=== PATIENT | female | born 1950 | race Caucasian/White ===

== ENCOUNTER → 2023-01-18 15:41 | Outpatient (CLI) | payer MEDICARE, SELFPAY ==
--- NOTE | 2023-01-18 15:43 | DI.RAD.S_ITS ---
PROCEDURE: XR ELBOW RT MIN 3V INDICATIONS: biceps tendon rupture, shoulder pain TECHNIQUE: 3 views of the elbow were acquired. COMPARISON: None. FINDINGS: Bones: No fractures or dislocations. No suspicious bony lesions. Soft tissues: No elbow joint effusion. No suspicious soft tissue calcifications. IMPRESSION: No acute elbow fracture or dislocation. No significant joint effusion. Dictated by: Ricardo Medel M.D. on 01/18/2023 at 16:24 Approved by: Ricardo Medel M.D. on 01/18/2023 at 16:25
--- NOTE | 2023-01-18 15:43 | DI.RAD.S_ITS ---
PROCEDURE: XR SHOULDER RT MIN 2V INDICATIONS: biceps tendon rupture, shoulder pain TECHNIQUE: 3 views of the shoulder were acquired. COMPARISON: None. FINDINGS: Bones: No fractures or dislocations. Moderate acromioclavicular joint and glenohumeral joint osteoarthritic changes are seen. No suspicious bony lesions. Visualized ribs appear intact. Soft tissues: No suspicious soft tissue calcifications. IMPRESSION: Moderate right shoulder joint osteoarthritis. No acute fracture or dislocation. No gross soft tissue abnormalities. Dictated by: Ricardo Medel M.D. on 01/18/2023 at 16:25 Approved by: Ricardo Medel M.D. on 01/18/2023 at 16:25
== END ==
PROVIDERS: Referring Provider Student in an Organized Health Care Education/Training Program; Visit Provider Student in an Organized Health Care Education/Training Program
DX: M19.011 Primary osteoarthritis, right shoulder; S46.219A Strain of muscle, fascia and tendon of other parts of biceps, unspecified arm, initial encounter
CPT/HCPCS: 73030; 73080

== ENCOUNTER 2025-01-09 20:13 | Emergency (ER) | payer MEDICARE, SELFPAY ==
[2025-01-09 20:20] VITALS: BP 185/84; PULSE 80; RESP 20; TEMP 36.7; O2SAT 97; BMI 24.5
[2025-01-09] MEDS: ONDANSETRON 4 MG/2 ML INJ IV (20:34)
[2025-01-09 20:49] LABS: Add Manual Diff / Slide Review NO; Hematocrit 39.2 % (36-46); Hemoglobin 13.2 g/dL (12.0-16.0); Lymphocytes Absolute Auto 2600 /uL (1100-4500); Mean Corpuscular HGB Conc 33.7 % (30-36); Mean Corpuscular Hemoglobin 31.2 PG (26-34); Mean Corpuscular Volume 92.6 fL (80-100); Platelet Count 251 X10^3/uL (150-400)
[2025-01-09 20:55] LABS: Alanine Aminotransferase 36 IU/L (<35); Albumin 4.8 g/dL (3.5-5.0); Albumin Globulin Ratio 1.7 (1.0-2.8); Alkaline Phosphatase 56 U/L (38-126); Blood Urea Nitrogen 18 mg/dL (7-17); Calcium 10.0 mg/dL (8.4-10.2); Carbon Dioxide 21 mmol/L (22-32); Chloride 110 mmol/L (98-107); Estimated Glomerular Filt Rate > 60 mL/min (>60); Globulin 2.8 g/dL (1.7-4.1); Glucose 123 mg/dL (70-99); HEMOLYSIS < 15 (0-50); Lipase 113 U/L (23-300); Potassium 4.0 mmol/L (3.4-5.1); Sodium 140 mmol/L (137-145); Total Protein 7.6 g/dL (6.3-8.2)
--- NOTE | 2025-01-09 21:05 | DI.CT.S_ITS ---
PROCEDURE: CT ABDOMEN PELVIS W CON INDICATIONS: LLQ abd pain TECHNIQUE: After the administration of intravenous contrast, axial sections acquired from the lung bases to the pubic symphysis. Coronal and sagittal reformats were performed. For radiation dose reduction, the following was used: automated exposure control, adjustment of mA and/or kV according to patient size. COMPARISON: None. FINDINGS: Image quality: Streak artifact from posterior spinal fusion hardware limits evaluation of surrounding structures. Lower Chest: No significant findings. ABDOMEN: Liver: No solid mass. Subcentimeter hypodensities are too small to characterize by CT. Gallbladder: No radiopaque gallstones or wall thickening. Contracted. Biliary ducts: No biliary dilation. Pancreas: No ductal dilation. Spleen: Size is within normal limits. Adrenal Glands: No adrenal nodules. Kidneys and Ureters: No hydronephrosis. No solid mass. No complex renal cystic lesion which requires follow up. Stomach and Bowel: Normal colonic caliber, without significant wall thickening. Normal caliber appendix. Peritoneum: No abnormal intraperitoneal fluid. No free air. Ventral Wall: No significant ventral hernia. Abdominal Nodes: No retroperitoneal or mesenteric adenopathy by size criteria. Vessels: Aorta and inferior vena cava are normal in size. PELVIS: Pelvic Organs: Unremarkable. Bladder: No bladder wall thickening, accounting for underdistention. Pelvic Nodes: No enlarged lymph nodes. Miscellaneous: No inguinal hernias are seen. Bones: No aggressive osseous abnormality. Thoracolumbar posterior spinal fusion. IMPRESSION: No acute abdominopelvic process. Approved by: Narsin Stern M.D.,Ph.D. on 01/09/2025 at 22:56
--- NOTE | 2025-01-09 21:53 | ED_ITS ---
HPI - General Adult General Chief complaint: Abdominal Pain Stated complaint: Abdominal Pain, Nausea Time Seen by Provider: 01/09/25 20:24 Source: patient Mode of arrival: Ambulatory History of Present Illness HPI narrative: 74-year-old female with history of remote back surgery 26 years ago, complains of flank area discomfort since 04/09 this morning. No recent change in activities, trauma, falls, lifting. She denies pain with urination, no frequency of urination. No cough, shortness of breath, fevers or chills. No history of kidney stones. No prior colitis or diverticulitis problems. Normal bowel movement, no history of constipation. No nausea or vomiting or diarrhea. No skin rashes. Related Data Previous Rx's ?Medication ?Instructions ?Recorded methocarbamol 500 mg tablet 500 mg PO TID 7 days #21 t abs 01/09/25 Allergies Allergy/AdvReac Type Severity Reaction Status Date / Time No Known Drug Allergies Allergy Verified 01/09/25 20:20 Patient History Social History Smoking Status: Former smoker Smoking Status: Former smoker Exam Narrative Exam Narrative: GENERAL: Well-developed patient, in mild distress. HEAD: Atraumatic. Normocephalic. EYES: Pupils equal round and reactive. Extraocular motions intact. No scleral icterus. No injection or drainage. ENT: Nose without bleeding, purulent drainage. Throat without erythema, tonsillar hypertrophy or exudate. Airway patent. NECK: Trachea midline. Non tender CARDIOVASCULAR: Regular rate and rhythm without murmurs, gallops, or rubs. RESPIRATORY: Clear to auscultation. Breath sounds equal bilaterally. No wheezes, rales, or rhonchi. GASTROINTESTINAL: Abdomen soft, non-tender, nondistended. EXTREMITIES: No edema or joint tenderness. BACK: Nontender without deformity or crepitance. No flank tenderness. Well- healed lumbar old scar. No tenderness paraspinal lumbar or thoracic, no CVA region tenderness on percussion. NEURO: AOx3. Motor functions grossly nonfocal. SKIN: No rash or erythema of visible areas Initial Vital Signs Initial Vital Signs: Vital Signs Temperature 98.1 F 01/09/25 20:20 Pulse Rate 80 01/09/25 20:20 Respiratory Rate 20 01/09/25 20:20 Blood Pressure 185/84 H 01/09/25 20:20 Pulse Oximetry 97 01/09/25 20:20 Oxygen Delivery Method Room Air 01/09/25 20:20 Course Orders Ordered: ED Orders 01/09/25 20:25 EKG-12 Lead Stat 01/09/25 20:30 Urine Culture Stat Urine Microscopic Stat 01/09/25 20:31 Complete Blood Count AUTO DIFF Stat Comprehensive Metabolic Panel Stat Lipase Stat 01/09/25 21:05 CT abdomen pelvis w con Stat Discontinued Medications Methocarbamol (Methocarbamol 500 Mg Tablet) 500 mg PO NOW ONE Stop: 01/09/25 23:28 Last Admin: 01/09/25 23:38 Dose: 500 mg Documented By: ADRIANO Ondansetron HCl (Ondansetron 4 Mg/2 Ml Inj) 4 mg IV NOW PRN PRN Reason: Nausea And Vomiting Last Admin: 01/09/25 20:34 Dose: 4 mg Documented By: PABLO Vital Signs Vital signs: Vital Signs - 8 hr 01/09/25 20:20 01/09/25 23:42 Temperature 98.1 F Pulse Rate 80 82 Respiratory Rate 20 18 Blood Pressure 185/84 H 178/82 H Pulse Oximetry 97 100 Oxygen Delivery Method Room Air Room Air Medical Decision Making Lab Data Lab results reviewed: Yes I reviewed the patient's lab results. Lab results narrative: White blood cell count 8400, hemoglobin 13.2, platelets adequate. Glucose 123. BUN 19 with creatinine 0.82 normal renal function. Serum CO2 21 slight decreased. Electrolytes unremarkable. Mild transaminitis, normal alkaline phosphatase and total bilirubin. Lipase normal. Urinalysis negative. 01/09/25 20:31 01/09/25 20:31 Labs: Lab Results 01/09/25 01/09/25 Range/Units 20:30 20:31 WBC 8.4 (4.5-11.0) X10^3/uL RBC 4.23 (4.0-5.2) X10^6/uL Hgb 13.2 (12.0-16.0) g/dL Hct 39.2 (36-46) % MCV 92.6 (80-100) fL MCH 31.2 (26-34) PG MCHC 33.7 (30-36) % RDW 12.5 (11.6-14.8) % Plt Count 251 (150-400) X10^3/uL Neut % (Auto) 56.6 (50-75) % Lymph % (Auto) 31.3 (25-40) % [place] % (Auto) 9.3 (3-14) % Eos % (Auto) 2.1 (2-4) % Baso % (Auto) 0.7 (0-2) % Neut # (Auto) 4700 (8884-1639) /uL Lymph # (Auto) 2600 (2222-2285) /uL [place] # (Auto) 800 (0-900) /uL Eos # (Auto) 200 (0-450) /uL Baso # (Auto) 100 (0-100) /uL Sodium 140 (137-145) mmol/L Potassium 4.0 (3.4-5.1) mmol/L Chloride 110 H (98-107) mmol/L Carbon Dioxide 21 L (22-32) mmol/L BUN 18 H (7-17) mg/dL Creatinine 0.82 (0.52-1.04) mg/dL Estimated GFR > 60 (>60) mL/min BUN/Creatinine Ratio 22.0 (6-22) Glucose 123 H (70-99) mg/dL Calcium 10.0 (8.4-10.2) mg/dL Total Bilirubin 0.8 (0.2-1.3) mg/dL AST 44 H (14-36) IU/L ALT 36 H (<35) IU/L Alkaline Phosphatase 56 (38-126) U/L Total Protein 7.6 (6.3-8.2) g/dL Albumin 4.8 (3.5-5.0) g/dL Globulin 2.8 (1.7-4.1) g/dL Albumin/Globulin Ratio 1.7 (1.0-2.8) Lipase 113 (23-300) U/L Urine RBC 1-5/hpf (0-5/HPF) Urine WBC 0-1/hpf (0-5/HPF) Ur Squamous Epith Cells None seen (0-5/HPF) Amorphous Sediment 1+ Urine Bacteria Occasional (0-1) (None) Vol Urine Centrifuged 10ml (spun) Urine Dip Bedside Urine Glucose Negative Bedside Urine Bilirubin - Negative Bedside Urine Ketone - Negative Urine Specific [place] 1.015 Bedside Urine Occult Blood ++ Bedside Urine pH 6.0 Bedside Urine Protein - Negative Bedside Urine Urobilinogen - Negative Bedside Urine Nitrite - Negative Bedside Urine Leukocytes - Negative Esterase Point of care testing: Urine Dip Bedside Urine Glucose Negative Bedside Urine Bilirubin - Negative Bedside Urine Ketone - Negative Urine Specific [place] 1.015 Bedside Urine Occult Blood ++ Bedside Urine pH 6.0 Bedside Urine Protein - Negative Bedside Urine Urobilinogen - Negative Bedside Urine Nitrite - Negative Bedside Urine Leukocytes - Negative Esterase Imaging Data CT scan - abdomen/pelvis: Radiologist's Impression: [address] [address] [address] Scan Report Signed Patient: Kati Green MR#: [id number] : 1950 Acct:[id number] Age/Sex: 74 / F Date of Service: 01/09/25 Loc: ED Accession Number: [id number] Procedure: CT abdomen pelvis w con Ordering Provider: Jovon Oakley MD PROCEDURE: CT ABDOMEN PELVIS W CON INDICATIONS: LLQ abd pain TECHNIQUE: After the administration of intravenous contrast, axial sections acquired from the lung bases to the pubic symphysis. Coronal and sagittal reformats were performed. For radiation dose reduction, the following was used: automated exposure control, adjustment of mA and/or kV according to patient size. COMPARISON: None. FINDINGS: Image quality: Streak artifact from posterior spinal fusion hardware limits evaluation of surrounding structures. Lower Chest: No significant findings. ABDOMEN: Liver: No solid mass. Subcentimeter hypodensities are too small to characterize by CT. Gallbladder: No radiopaque gallstones or wall thickening. Contracted. Biliary ducts: No biliary dilation. Pancreas: No ductal dilation. Spleen: Size is within normal limits. Adrenal Glands: No adrenal nodules. Kidneys and Ureters: No hydronephrosis. No solid mass. No complex renal cystic lesion which requires follow up. Stomach and Bowel: Normal colonic caliber, without significant wall thickening. Normal caliber appendix. Peritoneum: No abnormal intraperitoneal fluid. No free air. Ventral Wall: No significant ventral hernia. Abdominal Nodes: No retroperitoneal or mesenteric adenopathy by size criteria. Vessels: Aorta and inferior vena cava are normal in size. PELVIS: Pelvic Organs: Unremarkable. Bladder: No bladder wall thickening, accounting for underdistention. Pelvic Nodes: No enlarged lymph nodes. Miscellaneous: No inguinal hernias are seen. Bones: No aggressive osseous abnormality. Thoracolumbar posterior spinal fusion. IMPRESSION: No acute abdominopelvic process. Approved by: Nasrin Stern M.D.,Ph.D. on 01/09/2025 at 22:56 MDM Narrative Medical decision making narrative: 74-year-old female with history of remote lumbar surgery 25+ years ago, has left flank pain nontraumatic of unclear cause. Afebrile, sirs screen negative. Tenderness posterior exam spinal or paraspinal or CVA region, no anterior abdominal discomfort, no vesicles or rash. DDx consider ureteral stone, UTI, colitis, diverticulitis, musculoskeletal, other. Labs pending. Lab data: White blood cell count 8400, hemoglobin 13.2, platelets adequate. Glucose 123. BUN 19 with creatinine 0.82 normal renal function. Serum CO2 21 slight decreased. Electrolytes unremarkable. Mild transaminitis, normal alkaline phosphatase and total bilirubin. Lipase normal. Urinalysis negative. CT abdomen and pelvis. No acute changes. See radiology report. Unclear etiology of flank pain. Consider early zoster. Consider radiculopathy. Trial of muscle relaxant, given prescription for Robaxin if they are interested in trying this. Advised use of [id number] Tylenol and or Motrin as needed. Discharged home with . Return precautions discussed. Discharge Plan Departure Patient Disposition: Home Clinical Impression: Left flank pain Activity Restrictions/Additional Instructions: Left-sided flank area discomfort of unclear cause. Screening laboratory blood tests unremarkable, urinalysis negative. CT abdomen and pelvis showed no acute changes, that would also have included the bony windows and musculoskeletal structures, as well as solid organs and intestinal structures and hollow organs. You had not tried any [id number] medications yet such as Tylenol and or Motrin/Aleve, consider use of [id number] medications to see if they control your discomfort symptoms. Trial of muscle relaxant in case this is musculoskeletal in nature if related to muscle spasm could be helpful, prescription for Robaxin/methocarbamol sent to your pharmacy to use if needed. Also consider if you have a splotchy painful rash erupts that your pain could be due to early zoster/shingles rash of the skin, though you have had shingles vaccination so this seems less likely. Consider recheck of your symptoms in next couple of days if persisting. Return to this/nearest emergency department for any change worsening symptoms or any concerns prior. Prescriptions: New methocarbamol 500 mg tablet 500 mg PO TID 7 Days Qty: 21 0RF Referrals: Miscellaneous,Doctor, MD [Primary Care Provider, Medical] Stand Alone Forms: Patient Portal/API
[2025-01-09 23:42] VITALS: BP 178/82; PULSE 82; RESP 18; O2SAT 100
== END 2025-01-09 23:42 | disposition home or self-care (01) ==
PROVIDERS: Emergency Provider Emergency Medicine
DX: R10.9 Unspecified abdominal pain (principal); Z98.890 Other specified postprocedural states
CPT/HCPCS: 36415; 74177; 80053; 81003; 81015; 83690; 85025; 87086; 96374; 99284; J2405; Q9967